=== PATIENT | male | born 1940 | race Caucasian/White ===

== ENCOUNTER → 2020-10-14 | Outpatient (CLI) | payer MEDICARE, BC ==
[~2020-10-14] VITALS: Ht 188 cm; Wt 84.9 kg
[~2020-10-14] MED LIST: ALBUTEROL SULFAT3 M3 IH; ASPIRIN 81M81 MG/TA2; ASPIRIN 81M81 MG/TA2 PO; BROVANA15 MCG/2 M IH; CIALIS20 MG PO; COREG 6.256.25 MG/TA PO; COUMADIN 1MG1 MG/TAB PO; COUMADIN 6MG6 MG/TAB PO; CRESTOR 10MG10 MG PO; EFFEXOR 75M75 MG/TAB PO; FLOMAX 0.40.4 MG/CAP PO; FLONASE NASAL S16 GM NS; GLUCOPHAGE850 MG/TAB PO; MUCINEX 60600 MG/TA1 PO; PROTONIX 40MG T40 MG PO; PULMICORT0.5 MG/2 M IH; XANAX 0.5MG0.5 MG PO; YUPELRI175 MCG/3 IH; ZESTORETIC 12.51 TA1 PO
[2020-10-14 10:45] VITALS: BP 189/88; PULSE 65
[2020-10-14 11:30] VITALS: BP 160/95; PULSE 63
== END ==
LOC: COL.RAD 09:45
DX: Z98.890 Other specified postprocedural states (principal); C67.2 Malignant neoplasm of lateral wall of bladder